=== PATIENT | male | born 1960 | race Caucasian/White ===

== ENCOUNTER 2017-12-13 21:38 | Inpatient (IN) | payer MEDICARE, MEDICAID ==
[2017-12-13] MEDS ORDERED: Sodium Chloride 0.9% 1,000 ML IV ONE (21:53)
--- NOTE | 2017-12-13 22:01 | ED Physician Chart ---
ED Chief Complaint/HPI - Patient Information Date Seen:: 12/13/17 Time Seen:: 21:57 Chief Complaint:: generalized weakness History of Present Illness:: 57 [facility] old male from [facility] here for generalized weakness pt alert awake verbalizing Allergies:: Allergies Allergy/AdvReac Type Severity Reaction Status Date / Time almond oil Allergy Verified 12/13/17 21:45 Vitals:: Vital Signs - 8 hr 12/13/17 21:40 Temp 97.9 F HR 58 RR 18 BP 112/71 O2 Sat % 98 ED Review of Systems - Review of Systems General/Constitutional: No fever, No chills, No weight loss, No weakness, No diaphoresis, No edema, No loss of appetite Skin: No skin lesions, No rash, No bruising Head: No headache, No light-headedness Eyes: No loss of vision, No pain, No diplopia ENT: No earache, No nasal drainage, No sore throat, No tinnitus Neck: No neck pain, No swelling, No thyromegaly, No stiffness, No mass noted Cardio Vascular: No chest pain, No palpitations, No PND, No orthopnea, No edema Pulmonary: No SOB, No cough, No sputum, No wheezing GI: No nausea, No vomiting, No diarrhea, No pain, No melena, No hematochezia, No constipation, No hematemesis G/U: No dysuria, No frequency, No hematuria Musculoskeletal: No bone or joint pain, No back pain, No muscle pain Endocrine: No polyuria, No polydipsia Psychiatric: No prior psych history, No depression, No anxiety, No suicidal ideation Hematopoietic: No bruising, No lymphadenopathy Allergic/Immuno: No urticaria, No angioedema Neurological: No syncope, No focal symptoms, No weakness, No paresthesia, No headache, No seizure, No dizziness, No confusion, No vertigo ED Past Medical History - Past Medical History Past Medical History: HTN, Arthritis, Other (anxiety paranoid schizophrenia) Family Medical History - Family Member Mother History Unknown: Yes ED Physical Exam - Physical Examination General/Constitutional: Awake, Well-developed, well-nourished, Alert, No distress, GCS 15, Non-toxic appearing, Ambulatory Head: Atraumatic Eyes: Lids, conjuctiva normal, PERRL, EOMI Skin: Nl inspection, No rash, No skin lesions, No ecchymosis, Well hydrated, No lymphadenopathy ENMT: External ears, nose nl, Nasal exam nl, Lips, teeth, gums nl Neck: Nontender, Full ROM w/o pain, No JVD, No nuchal rigidity, No bruit, No mass, No stridor Respiratory: Nl effort/Exclusion, Clear to Auscultation, No Wheeze/Rhonchi/Rales Cardio Vascular: RRR, No murmur, gallop, rubs, NL S1 S2 GI: No tenderness/rebounding/guarding, No organomegaly, No hernia, Normal BS's, Nondistended, No mass/bruits, No McBurney tenderness : No CVA tenderness Extremities: No tenderness or effusion, Full ROM, normal strength in all extremities, No edema, Normal digits & nails Neuro/Psych: Alert/oriented, DTR's symmetric, Normal sensory exam, Normal motor strength, Judgement/insight normal, Mood normal, Normal gait, No focal deficits Misc: Normal back, No paraspinal tenderness ED Assessment - Assessment General Assessment: generalized weakness ED Septic Shock - . Is Septic Shock (SBP<90, OR Lactate>4 mmol\L) present?: No - <6hrs of presentation: Vital Signs: Vital Signs - 8 hr 12/13/17 21:40 Temp 97.9 F HR 58 RR 18 BP 112/71 O2 Sat % 98 ED Reassessment (Disposition) - Reassessment Reassessment Condition:: Improved - Diagnosis Diagnosis:: generalized weakness - Patient Disposition Discharge/Transfer:: Acute Care w/in this hosp Admitted to:: Med/Surg Condition at Disposition:: Stable
[2017-12-13 22:16] LABS: % BASOPHILS 0.5 % (0.0-2.0); % EOSINOPHILS 3.7 % (0.0-5.0); % LYMPHOCYTES 25.5 % (20.0-50.0); % MONOCYTES 9.3 % (2.0-10.0); EOSINOPHILE ABSOLUTE 0.4 Th/cmm (0.1-0.4); HEMOGLOBIN 12.4 gm/dL (12-16); LYMPHOCYTE ABSOLUTE 2.5 Th/cmm (1.5-3.0); MEAN CELL VOLUME 85.5 fl (80-99); MEAN CORPUSCULAR HEMOGLOBIN 28.6 pg (26.0-30.0); MEAN CORPUSCULAR HGB CONC 33.4 pg (28.0-36.0); MEAN PLATELET VOLUME 7.4 fl; MONOCYTE ABSOLUTE 0.9 Th/cmm (0.3-1.0); NEUTROPHILE ABSOLUTE 6.1 Th/cmm (1.8-8.0); PLATELET COUNT 236 Th/cmm (150-400); RED BLOOD COUNT 4.33 Mil/cmm (4.30-5.70); RED CELL DISTRIBUTION WIDTH 14.5 % (11.5-20.0); WHITE BLOOD COUNT 9.9 Th/cmm (4.8-10.8)
[2017-12-13 22:35] LABS: ALB/GLOB RATIO 1.4 (1.0-1.8); ALKALINE PHOSPHATASE 79 U/L (34-104); ANION GAP 12.3 (7.0-16.0); BILIRUBIN,TOTAL 0.4 mg/dL (0.3-1.0); BUN - UREA NITROGEN 21 mg/dL (7-25); CALCIUM SERUM 9.5 mg/dL (8.6-10.3); CARBON DIOXIDE 25.6 mEq/L (21.0-31.0); CHLORIDE 106 mEq/L (98-107); CREATININE - SERUM 1.4 mg/dL (0.7-1.3); GFR AFRICAN-AMERICAN > 60.0 ml/min (>90); GFR NON AFRICAN-AMERICAN 55.5 ml/min; GLUCOSE 137 mg/dL (70-105); POTASSIUM SERUM 3.9 mEq/L (3.5-5.1); SGOT 15 U/L (13-39); SGPT/ALT 28 U/L (7-52); SODIUM SERUM 140 mEq/L (136-145); TOTAL PROTEIN,SERUM 6.9 gm/dL (6.0-8.3)
[2017-12-13 23:20] LABS: URINE SOURCE CLEAN C
[2017-12-13 23:33] LABS: URINE BILIRUBIN NEGATIVE (NEGATIVE); URINE BLOOD NEGATIVE (NEGATIVE); URINE CLARITY CLEAR (CLEAR); URINE COLOR YELLOW; URINE GLUCOSE (UA) NEGATIVE (NEGATIVE); URINE KETONE NEGATIVE (NEGATIVE); URINE LEUKOCYTE ESTERASE TRACE (NEGATIVE); URINE MICROSCOPIC INDICATED? YES; URINE NITRATE NEGATIVE (NEGATIVE); URINE PROTEIN NEGATIVE (NEGATIVE); URINE UROBILINOGEN 0.2 E.U./dL (0.2 - 1.0)
[2017-12-13 23:40] LABS: URINE BACTERIA OCCASIONAL /hpf (NONE SEEN); URINE EPITHELIAL CELLS OCCASIONAL /lpf (FEW); URINE RBC NONE SEEN /hpf (0-5); URINE WBC 0-2 /hpf (0-5)
[2017-12-14 04:41] LABS: % BASOPHILS 0.4 % (0.0-2.0); % EOSINOPHILS 1.4 % (0.0-5.0); % LYMPHOCYTES 16.2 % (20.0-50.0); % MONOCYTES 10.1 % (2.0-10.0); % NEUTROPHILS 71.9 % (40.0-80.0); BASOPHILE ABSOLUTE 0.1 Th/cumm (0-0.2); EOSINOPHILE ABSOLUTE 0.2 Th/cmm (0.1-0.4); HEMATOCRIT 36.6 % (41.0-60); HEMOGLOBIN 12.4 gm/dL (12-16); LYMPHOCYTE ABSOLUTE 2.2 Th/cmm (1.5-3.0); MEAN CELL VOLUME 86.3 fl (80-99); MEAN CORPUSCULAR HEMOGLOBIN 29.1 pg (26.0-30.0); MEAN CORPUSCULAR HGB CONC 33.8 pg (28.0-36.0); MEAN PLATELET VOLUME 8.2 fl; MONOCYTE ABSOLUTE 1.4 Th/cmm (0.3-1.0); NEUTROPHILE ABSOLUTE 9.9 Th/cmm (1.8-8.0); PLATELET COUNT 211 Th/cmm (150-400); RED BLOOD COUNT 4.24 Mil/cmm (4.30-5.70); RED CELL DISTRIBUTION WIDTH 14.5 % (11.5-20.0); WHITE BLOOD COUNT 13.8 Th/cmm (4.8-10.8)
[2017-12-14] MEDS: Sodium Chloride 0.9% 1,000 ML IV SCH ×2 (04:50→14:28)
[2017-12-14 05:19] VITALS: BP 131/62
[2017-12-14 05:20] LABS: BUN - UREA NITROGEN 22 mg/dL (7-25); CALCIUM SERUM 9.3 mg/dL (8.6-10.3); CHLORIDE 111 mEq/L (98-107); CREATININE - SERUM 1.3 mg/dL (0.7-1.3); GFR AFRICAN-AMERICAN > 60.0 ml/min (>90); GFR NON AFRICAN-AMERICAN > 60.0 ml/min; GLUCOSE 129 mg/dL (70-105); SODIUM SERUM 144 mEq/L (136-145)
[2017-12-14] MEDS ORDERED: Albuterol Nebulizer 2.5mg/3mL HHN PRN (09:09)
[2017-12-14] MEDS: cefTRIAXone 1 GM in Sodium Chloride 0.9% 50 ML IV SCH (13:24)
--- NOTE | 2017-12-14 15:30 | Consultation ---
Consult Note - Consult Note Service Date: 12/14/17 Referring Physician: Carol Ann Joyner Consult Note: PHYSICIAN Consultation Note: Date of Admission: 12/13/17 Purpose of Consultation: Chief Complaint: Patient CHAYITO MCINTOSH was admitted to location Medical/Surgical Unit I with DEHYDRATION. History of Present Illness: 57-year-old male with a past medical history of osteo-arthritis, hypertension, GERD, mood disorder, Schizophrenia, anxiety disorder, gait disturbance, muscle lasting. Sent to the ER for generalized weakness. On initial evaluation patient's temperature 97.9 F and WBC count was 9900. Patient WBC count went up to 20,000 today. Rocephin was started and ID consult was called for further antibiotic management. Patient complains of cough. Patient denies any shortness of breath. Past Medical History: Osteoarthritis, essential hypertension, GERD, mood disorder, schizophrenia, anxiety disorder, gait disturbance, muscle lasting. Allergies Allergy/AdvReac Type Severity Reaction Status Date / Time almond oil Allergy Verified 12/13/17 21:45 Vital Signs Temp 97.6 F 12/14/17 11:42 Pulse 55 12/14/17 11:42 Resp 17 12/14/17 11:42 BP 113/83 12/14/17 11:42 Pulse Ox 98 12/14/17 11:42 Intake & Output 12/13/17 12/14/17 12/14/17 18:59 06:59 18:59 Intake Total 1050 Balance 1050 Weight (lbs) 59.421 kg 59.421 kg Intake: Intake, IV Amount 1000 Sodium Chloride 0.9% 1, 1000 000 ml @ 125 mls/hr IV . Q8H [facility] Rx#:[id number] Oral 50 Other: # Voids 1 # Bowel Movements 0 Stool Characteristics Soft Weight Source Estimated Bedscale Laboratory Results - last 24 hr 12/13/17 12/13/17 12/13/17 22:05 22:05 22:05 WBC 9.9 RBC 4.33 Hgb 12.4 Hct 37.0 L MCV 85.5 MCH 28.6 MCHC Differential 33.4 RDW 14.5 Plt Count 236 MPV 7.4 Neutrophils % 61.0 Lymphocytes % 25.5 Monocytes % 9.3 Eosinophils % 3.7 Basophils % 0.5 Sodium 140 Potassium 3.9 Chloride 106 Carbon Dioxide 25.6 Anion Gap 12.3 BUN 21 Creatinine 1.4 H Est GFR ( Amer) > 60.0 Est GFR (Non-Af Amer) 55.5 BUN/Creatinine Ratio 15.0 Glucose 137 H Calcium 9.5 Total Bilirubin 0.4 AST 15 ALT 28 Alkaline Phosphatase 79 Total Protein 6.9 Albumin 4.0 L Globulin 2.9 Albumin/Globulin Ratio 1.4 Urine Source Urine Color Urine Clarity Urine pH Ur Specific [place] Urine Protein Urine Glucose (UA) Urine Ketones Urine Blood Urine Nitrate Urine Bilirubin Urine Urobilinogen Ur Leukocyte Esterase Urine RBC Urine WBC Ur Epithelial Cells Urine Bacteria [place] 0.79 12/13/17 12/14/17 12/14/17 23:08 04:30 04:30 WBC 13.8 H RBC 4.24 L Hgb 12.4 Hct 36.6 L MCV 86.3 MCH 29.1 MCHC Differential 33.8 RDW 14.5 Plt Count 211 MPV 8.2 Neutrophils % 71.9 Lymphocytes % 16.2 L Monocytes % 10.1 H Eosinophils % 1.4 Basophils % 0.4 Sodium 144 Potassium 4.0 Chloride 111 H Carbon Dioxide 26.0 Anion Gap 11.0 BUN 22 Creatinine 1.3 Est GFR ( Amer) > 60.0 Est GFR (Non-Af Amer) > 60.0 BUN/Creatinine Ratio 16.9 Glucose 129 H Calcium 9.3 Total Bilirubin AST ALT Alkaline Phosphatase Total Protein Albumin Globulin Albumin/Globulin Ratio Urine Source CLEAN C Urine Color YELLOW Urine Clarity CLEAR Urine pH 6.0 Ur Specific [place] <= 1.005 Urine Protein NEGATIVE Urine Glucose (UA) NEGATIVE Urine Ketones NEGATIVE Urine Blood NEGATIVE Urine Nitrate NEGATIVE Urine Bilirubin NEGATIVE Urine Urobilinogen 0.2 Ur Leukocyte Esterase TRACE H Urine RBC NONE SEEN Urine WBC 0-2 Ur Epithelial Cells OCCASIONAL Urine Bacteria OCCASIONAL [place] Home Medication Medication Instructions Recorded Type Acetaminophen [Tylenol] 650 mg PO Q4HR PRN 12/13/17 History Albuterol Sulfate [Proair 90 mcg IH Q6HR PRN 12/13/17 History Respiclick] Amlodipine Besylate 5 mg PO DAILY 12/13/17 History Clozapine 50 mg PO BID 12/13/17 History Clozapine 125 mg PO HS 12/13/17 History Docusate Sodium [Stool Softener] 250 mg PO DAILY 12/13/17 History Fish Oil [[place] 3] 1,000 mg PO DAILY 12/13/17 History Lactulose 30 ml PO BID 12/13/17 History [place] Carbonate 600 mg PO HS 12/13/17 History Lorazepam [Ativan] 0.5 mg PO HS 12/13/17 History Methimazole 20 mg PO DAILY 12/13/17 History Pantoprazole [Protonix] 40 mg PO DAILY 12/13/17 History Zolpidem Tartrate [Ambien] 5 mg PO HS 12/13/17 History cloNIDine HCl [Catapres] 0.1 mg PO DAILY 12/13/17 History Current Medications Generic Name Dose Route Start Last Admin Trade Name Freq PRN Reason Stop Dose Admin Acetaminophen 650 mg 12/14/17 09:09 Tylenol PO 02/12/18 09:08 Q4HR PRN Pain or Fever >101 Albuterol Sulfate 2.5 mg 12/14/17 09:09 Albuterol 2.5mg/3ml Neb Ud HHN Q6HR PRN Shortness of Breath Amlodipine Besylate 5 mg 12/15/17 09:00 Norvasc PO 02/13/18 08:59 DAILY [facility] Clozapine 50 mg 12/14/17 17:00 Clozaril PO 02/12/18 16:59 BID [facility] Docusate Sodium 250 mg 12/15/17 09:00 Colace PO 02/13/18 08:59 DAILY [facility] Fish Oil 1,000 mg 12/15/17 09:00 [place] 3 PO 02/13/18 08:59 DAILY [facility] Sodium Chloride 1,000 mls @ 125 mls/hr 12/13/17 23:49 12/14/17 14:28 Nacl 0.9% IV 02/11/18 23:48 125 mls/hr .Q8H [facility] Administration Ceftriaxone Sodium 1 gm/ 50 mls @ 100 mls/hr 12/14/17 11:00 12/14/17 13:24 Sodium Chloride IV 02/12/18 10:59 100 mls/hr Q24HR@0900 [facility] Administration Lactulose 30 gm 12/14/17 17:00 Cephulac PO 02/12/18 16:59 BID [facility] [place] Carbonate 600 mg 12/14/17 21:00 Eskalith PO 02/12/18 20:59 HS [facility] Lorazepam 0.5 mg 12/14/17 21:00 Ativan PO 02/12/18 20:59 HS [facility] Protocol Methimazole 20 mg 12/15/17 09:00 Tapazole PO 02/13/18 08:59 DAILY [facility] Pantoprazole Sodium 40 mg 12/15/17 09:00 Protonix PO 02/13/18 08:59 DAILY [facility] Zolpidem Tartrate 5 mg 12/14/17 21:00 Ambien PO 02/12/18 20:59 HS [facility] Review of Systems: A 12 point ROS was reviewed with the pertinent positive and negatives noted in the HPI. Social History Smoking Status Unknown if ever smoked Family Medical History Unknown. Physical Exam: General: Comfortable, not in acute distress. HEENT: Head: Normocephalic, atraumatic. Oral cavity: Moist, pink tongue. Eyes : Pallor is present. No icterus. Pupil PERRLA EOMI. Neck: Supple, no JVD. No use of accessory neck muscles. Cardio: S1 and S2 within normal limits regular rhythm no murmur or gallop. Respiratory: CTAP. Abdominal: Soft, nontender nondistended bowel sounds present Genital/Urinary: Deferred. Extremities: No sinus, no clubbing no edema. Patient has dry erythematous lesion with a skills on both feet. Neurological: Alert, awake, oriented 3. Assessment: 1. Cough, bronchitis. 2. Leukocytosis likely reactive. 3. Schizophrenia. 4. Hypertension. 5. Mood disorder. 6. Osteoarthritis. Plan: Continue Rocephin. If the patient's WBC Count comes normal, discontinue antibiotic. Dr. Ar Laboy for involving me in taking care of this patient Signed, Charles Colin M.D. [id number]
--- NOTE | 2017-12-14 17:10 | History & Physical ---
ADMIT DATE: 12/14/2017 CHIEF COMPLAINT: Increase in generalized weakness. HISTORY OF PRESENT ILLNESS: This is a 57-year-old male who is a resident of [facility] admitted here to the med-surg Unit due to increase of weakness. No reports of any [facility] the [facility]. For further management, the patient is now admitted. PAST MEDICAL HISTORY: Hypertension, arthritis, anxiety, paranoid schizophrenia. FAMILY HISTORY: Noncontributory. SOCIAL HISTORY: The patient is a [facility] resident, requiring 24-hour nursing care. PAST SURGICAL HISTORY: Unknown. REVIEW OF SYSTEMS: GENERAL: Denies any fever and chills. CARDIOVASCULAR: Denies chest pain. RESPIRATORY: Denies shortness of breath. GASTROINTESTINAL: Denies nausea, vomiting, abdominal pain. GENITOURINARY: Denies increased frequency or dysuria. NEUROLOGIC: No headaches, seizures, or syncope. All systems are reviewed and negative. PHYSICAL EXAMINATION: GENERAL: The patient is well developed, well nourished, in no apparent distress. VITAL SIGNS: Temperature 97.6, height 5 feet 5 inches, blood pressure 113/83, respirations 17, O2 98%. HEENT: Head: Normocephalic, atraumatic. NECK: Supple. No mass. LUNGS: Clear bilaterally. HEAT: Regular rate and rhythm. ABDOMEN: Soft, nontender. EXTREMITIES: No trace of edema noted. LABORATORY DATA: WBC 13.8, H and H 12.4 and 36.6, platelet of 211. Sodium 144, potassium 4.0, chloride 111, BUN 22, creatinine 1.3. ASSESSMENT: Acute dehydration, leukocytosis, generalized weakness, hypertension, arthritis, anxiety, paranoid, schizophrenia. PLAN: We will admit the patient to Med/Surg unit. We will get IV fluids for hydration. We will also get Infectious Disease as well as Psychiatry. Keep patient on empiric antibiotics. We will continue to monitor this patient. [facility]# [id number]
[2017-12-14] MEDS: Lactulose 10 Gm/15 mL 30mL UDC PO SCH (17:52)
--- NOTE | 2017-12-14 21:27 | Consultation ---
DATE OF CONSULTATION: 12/14/2017 IDENTIFYING INFORMATION: The patient is a 57-year-old male. HISTORY OF PRESENT ILLNESS: The patient has a history of chronic paranoid schizophrenia. The patient was admitted because of generalized weakness. When I talked to him, he was able to give some information. He reports a history of being paranoid, hearing voices. He sleeps well, eats well. He denies any current intent to harm himself or anybody. Denies any other visual hallucinations now. He knows that he is diagnosed with chronic paranoid schizophrenia. He denies any current substance abuse or in the past. PAST PSYCHIATRIC HISTORY: Chronic paranoid schizophrenia. He denies prior suicide attempt. He reports multiple hospitalizations. He currently lives at [place] [facility]. MEDICAL HISTORY: The patient admitted with generalized weakness. He has a history of hypertension, arthritis. ALLERGIES: HE IS ALLERGIC TO ALMOND OIL, BUT NO KNOWN DRUG ALLERGY. MEDICATIONS: He is currently on clozapine 50 mg twice a day and lithium 600 mg at bedtime. FAMILY AND SOCIAL HISTORY: The patient reports that he is single, never , no children, 12th grade education, never worked, on disability for mental illness. No family psychotic disorder. MENTAL STATUS EXAMINATION: The patient is appropriately dressed, appropriately groomed. Mood is depressed. Affect is constricted. Thoughts are clear. Speech is clear. He is alert and oriented to place, person, time, and situation. He reports feeling okay now, stable. No suicidal ideation. No homicidal ideation. No paranoia. Sleeping well, eating well. 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 Recent memory is good, can remember events led to him coming here, what he ate for breakfast. His insight and judgment seems to be fair. He knows he has a problem to be compliant with medications. IMPRESSION: Chronic paranoid schizophrenia, stable. MEDICAL DIAGNOSES: Per medical doctor. PLAN: Recommend continue his clozapine and lithium. Dr. Caro will follow up with him. Thank you very much for allowing me to participate in the care of this most interesting gentleman. JOB# [id number]
[2017-12-15] MEDS: Sodium Chloride 0.9% 1,000 ML IV SCH ×3 (00:42→23:52)
[2017-12-15 06:15] LABS: % BASOPHILS 0.2 % (0.0-2.0); % EOSINOPHILS 5.4 % (0.0-5.0); % LYMPHOCYTES 27.9 % (20.0-50.0); % MONOCYTES 9.5 % (2.0-10.0); EOSINOPHILE ABSOLUTE 0.7 Th/cmm (0.1-0.4); HEMATOCRIT 39.2 % (41.0-60); LYMPHOCYTE ABSOLUTE 3.4 Th/cmm (1.5-3.0); MEAN CELL VOLUME 86.4 fl (80-99); MEAN CORPUSCULAR HEMOGLOBIN 28.7 pg (26.0-30.0); MEAN CORPUSCULAR HGB CONC 33.3 pg (28.0-36.0); MEAN PLATELET VOLUME 7.8 fl; MONOCYTE ABSOLUTE 1.2 Th/cmm (0.3-1.0); NEUTROPHILE ABSOLUTE 6.9 Th/cmm (1.8-8.0); PLATELET COUNT 226 Th/cmm (150-400); RED BLOOD COUNT 4.54 Mil/cmm (4.30-5.70); WHITE BLOOD COUNT 12.2 Th/cmm (4.8-10.8)
[2017-12-15 06:34] LABS: ANION GAP 12.3 (7.0-16.0); BUN - UREA NITROGEN 18 mg/dL (7-25); CALCIUM SERUM 9.6 mg/dL (8.6-10.3); CARBON DIOXIDE 24.4 mEq/L (21.0-31.0); CHLORIDE 112 mEq/L (98-107); CREATININE - SERUM 1.2 mg/dL (0.7-1.3); GFR AFRICAN-AMERICAN > 60.0 ml/min (>90); GFR NON AFRICAN-AMERICAN > 60.0 ml/min; GLUCOSE 109 mg/dL (70-105); POTASSIUM SERUM 4.7 mEq/L (3.5-5.1); SODIUM SERUM 144 mEq/L (136-145)
[2017-12-15] MEDS: Fish Oil 1,000 MG SGL PO SCH (08:54)
[2017-12-15] MEDS: Pantoprazole 40 mg EC Tab PO SCH (08:54)
[2017-12-15] MEDS: Lactulose 10 Gm/15 mL 30mL UDC PO SCH ×2 (08:59→16:30)
[2017-12-15] MEDS: cefTRIAXone 1 GM in Sodium Chloride 0.9% 50 ML IV SCH (09:00)
--- NOTE | 2017-12-15 10:39 | Internal Medicine Prog Note ---
Internal Medicine Subjective - Subjective Patient seen and examined:: chart reviewed Patient is:: awake Patient Complaints of:: cough Per staff patient has:: tolerating meds Internal Medicine Objective - Results Result Diagrams: 12/15/17 05:20 12/15/17 05:20 Recent Labs: Laboratory Last Values WBC 12.2 Th/cmm (4.8-10.8) H 12/15/17 05:20 RBC 4.54 Mil/cmm (4.30-5.70) 12/15/17 05:20 Hgb 13.0 gm/dL (12-16) 12/15/17 05:20 Hct 39.2 % (41.0-60) L 12/15/17 05:20 MCV 86.4 fl (80-99) 12/15/17 05:20 MCH 28.7 pg (26.0-30.0) 12/15/17 05:20 MCHC Differential 33.3 pg (28.0-36.0) 12/15/17 05:20 RDW 15.0 % (11.5-20.0) 12/15/17 05:20 Plt Count 226 Th/cmm (150-400) 12/15/17 05:20 MPV 7.8 fl 12/15/17 05:20 Neutrophils % 57.0 % (40.0-80.0) 12/15/17 05:20 Lymphocytes % 27.9 % (20.0-50.0) 12/15/17 05:20 Monocytes % 9.5 % (2.0-10.0) 12/15/17 05:20 Eosinophils % 5.4 % (0.0-5.0) H 12/15/17 05:20 Basophils % 0.2 % (0.0-2.0) 12/15/17 05:20 Sodium 144 mEq/L (136-145) 12/15/17 05:20 Potassium 4.7 mEq/L (3.5-5.1) 12/15/17 05:20 Chloride 112 mEq/L (98-107) H 12/15/17 05:20 Carbon Dioxide 24.4 mEq/L (21.0-31.0) 12/15/17 05:20 Anion Gap 12.3 (7.0-16.0) 12/15/17 05:20 BUN 18 mg/dL (7-25) 12/15/17 05:20 Creatinine 1.2 mg/dL (0.7-1.3) 12/15/17 05:20 Est GFR ( Amer) > 60.0 ml/min (>90) 12/15/17 05:20 Est GFR (Non-Af Amer) > 60.0 ml/min 12/15/17 05:20 BUN/Creatinine Ratio 15.0 12/15/17 05:20 Glucose 109 mg/dL (70-105) H 12/15/17 05:20 Calcium 9.6 mg/dL (8.6-10.3) 12/15/17 05:20 Total Bilirubin 0.4 mg/dL (0.3-1.0) 12/13/17 22:05 AST 15 U/L (13-39) 12/13/17 22:05 ALT 28 U/L (7-52) 12/13/17 22:05 Alkaline Phosphatase 79 U/L (34-104) 12/13/17 22:05 Total Protein 6.9 gm/dL (6.0-8.3) 12/13/17 22:05 Albumin 4.0 gm/dL (4.2-5.5) L 12/13/17 22:05 Globulin 2.9 gm/dL 12/13/17 22:05 Albumin/Globulin Ratio 1.4 (1.0-1.8) 12/13/17 22:05 Urine Source CLEAN C 12/13/17 23:08 Urine Color YELLOW 12/13/17 23:08 Urine Clarity CLEAR (CLEAR) 12/13/17 23:08 Urine pH 6.0 (4.6 - 8.0) 12/13/17 23:08 Ur Specific [place] <= 1.005 (1.005-1.030) 12/13/17 23:08 Urine Protein NEGATIVE mg/dL (NEGATIVE) 12/13/17 23:08 Urine Glucose (UA) NEGATIVE mg/dL (NEGATIVE) 12/13/17 23:08 Urine Ketones NEGATIVE mg/dL (NEGATIVE) 12/13/17 23:08 Urine Blood NEGATIVE (NEGATIVE) 12/13/17 23:08 Urine Nitrate NEGATIVE (NEGATIVE) 12/13/17 23:08 Urine Bilirubin NEGATIVE (NEGATIVE) 12/13/17 23:08 Urine Urobilinogen 0.2 E.U./dL (0.2 - 1.0) 12/13/17 23:08 Ur Leukocyte Esterase TRACE (NEGATIVE) H 12/13/17 23:08 Urine RBC NONE SEEN /hpf (0-5) 12/13/17 23:08 Urine WBC 0-2 /hpf (0-5) 12/13/17 23:08 Ur Epithelial Cells OCCASIONAL /lpf (FEW) 12/13/17 23:08 Urine Bacteria OCCASIONAL /hpf (NONE SEEN) 12/13/17 23:08 [place] 0.79 mmol/L (0.5-1.0) 12/13/17 22:05 - Physical Exam Vitals and I&O: Vital Signs Temp 98.1 F 12/15/17 08:00 Pulse 50 12/15/17 08:55 Resp 18 12/15/17 08:00 BP 136/64 12/15/17 08:55 Pulse Ox 95 12/15/17 08:00 Intake & Output 12/14/17 12/15/17 12/15/17 18:59 06:59 18:59 Intake Total 1100 1050 Balance 1100 1050 Weight (lbs) 59.421 kg 59.421 kg Intake: Intake, IV Amount 1050 1000 Sodium Chloride 0.9% 1, 1000 1000 000 ml @ 125 mls/hr IV . Q8H [facility] Rx#:[id number] cefTRIAXone 1 gm In 50 Sodium Chloride 0.9% 50 ml @ 100 mls/hr IV Q24HR@ 0900 [facility] Rx#:[id number] Oral 50 50 Other: # Voids 1 4 # Bowel Movements 0 0 Weight Source Bedscale Bedscale Active Medications: Current Medications Acetaminophen (Tylenol) 650 mg PO Q4HR PRN PRN Reason: Pain or Fever >101 Stop: 02/12/18 09:08 Albuterol Sulfate (Albuterol 2.5mg/3ml Neb Ud) 2.5 mg HHN Q6HR PRN PRN Reason: Shortness of Breath Amlodipine Besylate (Norvasc) 5 mg PO DAILY [facility] Stop: 02/13/18 08:59 Last Admin: 12/15/17 08:55 Dose: 5 mg Clozapine (Clozaril) 50 mg PO BID [facility] Stop: 02/12/18 16:59 Docusate Sodium (Colace) 250 mg PO DAILY [facility] Stop: 02/13/18 08:59 Last Admin: 12/15/17 08:55 Dose: 250 mg Fish Oil ([place] 3) 1,000 mg PO DAILY [facility] Stop: 02/13/18 08:59 Last Admin: 12/15/17 08:54 Dose: 1,000 mg Sodium Chloride (Nacl 0.9%) 1,000 mls @ 125 mls/hr IV .Q8H [facility] Stop: 02/11/18 23:48 Last Admin: 12/15/17 00:42 Dose: 125 mls/hr Ceftriaxone Sodium 1 gm/ (Sodium Chloride) 50 mls @ 100 mls/hr IV Q24HR@0900 [facility] Stop: 02/12/18 10:59 Last Admin: 12/15/17 09:00 Dose: 100 mls/hr Lactulose (Cephulac) 30 gm PO BID [facility] Stop: 02/12/18 16:59 Last Admin: 12/15/17 08:59 Dose: 30 gm [place] Carbonate (Eskalith) 600 mg PO HS [facility]; Protocol Stop: 02/12/18 20:59 Last Admin: 12/14/17 22:30 Dose: 600 mg Lorazepam (Ativan) 0.5 mg PO HS [facility]; Protocol Stop: 02/12/18 20:59 Methimazole (Tapazole) 20 mg PO DAILY [facility] Stop: 02/13/18 08:59 Last Admin: 12/15/17 08:59 Dose: 20 mg Pantoprazole Sodium (Protonix) 40 mg PO DAILY [facility] Stop: 02/13/18 08:59 Last Admin: 12/15/17 08:54 Dose: 40 mg Zolpidem Tartrate (Ambien) 5 mg PO HS [facility] Stop: 02/12/18 20:59 Last Admin: 12/14/17 22:30 Dose: 5 mg General: weak HEENT: NC/AT Neck: Supple Lungs: congested Cardiovascular: Normal S1, Normal S2 Abdomen: non-tender Extremities: clear Internal Medicine Assmt/Plan - Assessment Assessment: bronchitis. Leukocytosis h/o Schizophrenia. h/o Hypertension. Mood disorder. h/o Osteoarthritis. - Plan Plan: continue antibiotics monitor vitals/dier labs dr bethany houser f/up Nutritional Asmnt/Malnutr-PDOC - Dietary Evaluation Malnutrition Findings (Please click <Entered> for more info): Nutritional Asmnt/Malnutrition Start: 12/14/17 14: 35 Text: Status: Complete Freq: Protocol: Document 12/14/17 14:35 NADIA (Rec: 12/14/17 14:56 NADIA [email or web address]) Nutritional Asmnt/Malnutrition Patient General Information Nutritional Screening High Risk Diagnosis dehydration Pertinent Medical Hx/Surgical Hx Per ED report: HTN, arthritis, anxiety paranoid schizophrenia No H&P available yet Subjective Information Pt resting in bed at time of visit, alert and oriented. Pt states his appetite is good and states he ate well at breakfast. Pt states he has no food preferences. Current Diet Order/ Nutrition Support Low sodium (2 gm) Pertinent Medications colace, omega 3, protonix, tapazole, Nacl 0.9% Pertinent Labs 12/14: Cl 111, glucose 129, Cr 1.3 12/13: Cl 106, glucose 137, Cr 1.4, Alb 4.0 Nutritional Hx/Data Height 1.91 m Height (Calculated Centimeters) 190.5 Current Weight (lbs) 59.421 kg Weight (Calculated Kilograms) 59.4 Weight (Calculated Grams) 48234.6 [place] Body Weight 196 lb Body Mass Index (BMI) 16.3 Weight Status Underweight GI Symptoms GI Symptoms None Last BM none Difficult in: None Food Allergies Yes: almond oil Skin Integrity/Comment: abrasions to both knees, skin irritation to both feet, yojana 17 Estimated Nutritional Goals BEE in Kcals: Using Current wt Calories/Kcals/Kg 27-32 Kcals Calculated [id number] Protein: Using Current wt Protein g/k-1.2 Protein Calculated 60-71 g Fluid: ml [id number] (1 ml/kcal) Nutritional Problem 1. Problem Problem Underweight Etiology possible inadequate energy intake Signs/Symptoms: BMI 16.4 Malnutrition Related to Morbid Obesity Malnutrition related to morbid obesity No Intervention/Recommendation Comments 1. Continue with low sodium 2 gm diet as ordered d/t hx of HTN 2. Monitor PO intake, wt, labs and skin integrity 3. F/U as moderate risk in 3-5 days, 12/17-12/19; PO check 12/16 Expected Outcomes/Goals Expected Outcomes/Goals 1. PO intake to meet at least 75% of nutritional needs 2. Wt gain or stability, skin to remain intact, and nutrition related labs to approach normal limits Reviewed by AMEENA Workamn RD
--- NOTE | 2017-12-15 18:14 | History & Physical ---
ADMIT DATE: 12/14/2017 HISTORY OF PRESENT ILLNESS: The patient is a 57-year-old female patient admitted for increasing weakness and the patient is awake, alert, verbalizing while transfer. REVIEW OF SYSTEMS: Otherwise, negative. PAST MEDICAL HISTORY: The patient has history of hypertension and arthritis. PHYSICAL EXAMINATION: HEAD: Normal. ENT: Normal. NECK: Supple, nontender. LUNGS: Clear. CARDIOVASCULAR SYSTEM: S1, S2 heard. ABDOMEN: Soft. Bowel sounds are heard. CENTRAL NERVOUS SYSTEM: Grossly normal. DIAGNOSES: Generalized weakness, electrolyte imbalance, history of hypertension, arthritis, history of anxiety, schizophrenia. PLAN: The patient is being admitted. I will go ahead and order some labs and also we will have Psych consult and I will follow the patient. JOB# [id number]
[2017-12-16 08:50] LABS: % BASOPHILS 0.2 % (0.0-2.0); % EOSINOPHILS 4.1 % (0.0-5.0); % LYMPHOCYTES 20.4 % (20.0-50.0); % MONOCYTES 8.3 % (2.0-10.0); EOSINOPHILE ABSOLUTE 0.5 Th/cmm (0.1-0.4); HEMATOCRIT 40.9 % (41.0-60); HEMOGLOBIN 13.6 gm/dL (12-16); LYMPHOCYTE ABSOLUTE 2.7 Th/cmm (1.5-3.0); MEAN CELL VOLUME 86.6 fl (80-99); MEAN CORPUSCULAR HEMOGLOBIN 28.7 pg (26.0-30.0); MEAN CORPUSCULAR HGB CONC 33.2 pg (28.0-36.0); MEAN PLATELET VOLUME 7.7 fl; MONOCYTE ABSOLUTE 1.1 Th/cmm (0.3-1.0); NEUTROPHILE ABSOLUTE 8.8 Th/cmm (1.8-8.0); PLATELET COUNT 245 Th/cmm (150-400); RED BLOOD COUNT 4.73 Mil/cmm (4.30-5.70); RED CELL DISTRIBUTION WIDTH 14.9 % (11.5-20.0); WHITE BLOOD COUNT 13.1 Th/cmm (4.8-10.8)
[2017-12-16 09:17] LABS: ANION GAP 11.4 (7.0-16.0); BUN - UREA NITROGEN 18 mg/dL (7-25); CALCIUM SERUM 9.8 mg/dL (8.6-10.3); CARBON DIOXIDE 24.7 mEq/L (21.0-31.0); CHLORIDE 109 mEq/L (98-107); CREATININE - SERUM 1.2 mg/dL (0.7-1.3); GFR AFRICAN-AMERICAN > 60.0 ml/min (>90); GFR NON AFRICAN-AMERICAN > 60.0 ml/min; GLUCOSE 122 mg/dL (70-105); POTASSIUM SERUM 4.1 mEq/L (3.5-5.1); SODIUM SERUM 141 mEq/L (136-145)
[2017-12-16] MEDS: Fish Oil 1,000 MG SGL PO SCH (09:18)
[2017-12-16] MEDS: Pantoprazole 40 mg EC Tab PO SCH (09:18)
[2017-12-16] MEDS: Lactulose 10 Gm/15 mL 30mL UDC PO SCH (09:19)
[2017-12-16] MEDS: cefTRIAXone 1 GM in Sodium Chloride 0.9% 50 ML IV SCH (09:51)
--- NOTE | 2017-12-16 13:40 | Progress Notes ---
DATE: 12/16/2017 SUBJECTIVE: Case was discussed with staff of the patient, reviewed records. The patient continues to be internally preoccupied. Continues to have poor insight. Continues to be unable to make safe plan for self-care or have a meaningful conversation. He continues to complain of feeling weak. He tend to he reports today that he has been somewhat paranoid, not sure that this is because of her being on the medical floor. So it seemed like he is medically cleared, so we need to watch him prior to him going back to this treatment facility and I would recommend that he could be transferred back to [facility]. He is on ____, so maybe medication need to be adjusted. Thank you very much for allowing me to participate in the care of this most interesting gentleman. JOB# [id number]
--- NOTE | 2017-12-16 14:34 | Progress Notes ---
DATE: 12/15/2017 The patient ____, sleeping well, eating well. He reports starting to hear voices. He is on clozapine. Denies any intent to harm himself or anyone, but he is starting to destabilize, so I will evaluate him tomorrow. Thank you very much for allowing me to participate in the care of this most interesting gentleman. [facility]# [id number]
--- NOTE | 2017-12-16 15:32 | Infectious Disease Prog Note ---
Infectious Disease Subjective - Review of Systems Service Date: 12/16/17 Subjective: Leukocytosis, [place] level was normal on 12/13/2017. Infectious Disease Objective - Results Result Diagrams: 12/16/17 08:40 12/16/17 08:40 Recent Labs: Laboratory Last Values WBC 13.1 Th/cmm (4.8-10.8) H 12/16/17 08:40 RBC 4.73 Mil/cmm (4.30-5.70) 12/16/17 08:40 Hgb 13.6 gm/dL (12-16) 12/16/17 08:40 Hct 40.9 % (41.0-60) L 12/16/17 08:40 MCV 86.6 fl (80-99) 12/16/17 08:40 MCH 28.7 pg (26.0-30.0) 12/16/17 08:40 MCHC Differential 33.2 pg (28.0-36.0) 12/16/17 08:40 RDW 14.9 % (11.5-20.0) 12/16/17 08:40 Plt Count 245 Th/cmm (150-400) 12/16/17 08:40 MPV 7.7 fl 12/16/17 08:40 Neutrophils % 67.0 % (40.0-80.0) 12/16/17 08:40 Lymphocytes % 20.4 % (20.0-50.0) 12/16/17 08:40 Monocytes % 8.3 % (2.0-10.0) 12/16/17 08:40 Eosinophils % 4.1 % (0.0-5.0) 12/16/17 08:40 Basophils % 0.2 % (0.0-2.0) 12/16/17 08:40 Sodium 141 mEq/L (136-145) 12/16/17 08:40 Potassium 4.1 mEq/L (3.5-5.1) 12/16/17 08:40 Chloride 109 mEq/L (98-107) H 12/16/17 08:40 Carbon Dioxide 24.7 mEq/L (21.0-31.0) 12/16/17 08:40 Anion Gap 11.4 (7.0-16.0) 12/16/17 08:40 BUN 18 mg/dL (7-25) 12/16/17 08:40 Creatinine 1.2 mg/dL (0.7-1.3) 12/16/17 08:40 Est GFR ( Amer) > 60.0 ml/min (>90) 12/16/17 08:40 Est GFR (Non-Af Amer) > 60.0 ml/min 12/16/17 08:40 BUN/Creatinine Ratio 15.0 12/16/17 08:40 Glucose 122 mg/dL (70-105) H 12/16/17 08:40 Calcium 9.8 mg/dL (8.6-10.3) 12/16/17 08:40 Total Bilirubin 0.4 mg/dL (0.3-1.0) 12/13/17 22:05 AST 15 U/L (13-39) 12/13/17 22:05 ALT 28 U/L (7-52) 12/13/17 22:05 Alkaline Phosphatase 79 U/L (34-104) 12/13/17 22:05 Total Protein 6.9 gm/dL (6.0-8.3) 12/13/17 22:05 Albumin 4.0 gm/dL (4.2-5.5) L 12/13/17 22:05 Globulin 2.9 gm/dL 12/13/17 22:05 Albumin/Globulin Ratio 1.4 (1.0-1.8) 12/13/17 22:05 Urine Source CLEAN C 12/13/17 23:08 Urine Color YELLOW 12/13/17 23:08 Urine Clarity CLEAR (CLEAR) 12/13/17 23:08 Urine pH 6.0 (4.6 - 8.0) 12/13/17 23:08 Ur Specific [place] <= 1.005 (1.005-1.030) 12/13/17 23:08 Urine Protein NEGATIVE mg/dL (NEGATIVE) 12/13/17 23:08 Urine Glucose (UA) NEGATIVE mg/dL (NEGATIVE) 12/13/17 23:08 Urine Ketones NEGATIVE mg/dL (NEGATIVE) 12/13/17 23:08 Urine Blood NEGATIVE (NEGATIVE) 12/13/17 23:08 Urine Nitrate NEGATIVE (NEGATIVE) 12/13/17 23:08 Urine Bilirubin NEGATIVE (NEGATIVE) 12/13/17 23:08 Urine Urobilinogen 0.2 E.U./dL (0.2 - 1.0) 12/13/17 23:08 Ur Leukocyte Esterase TRACE (NEGATIVE) H 12/13/17 23:08 Urine RBC NONE SEEN /hpf (0-5) 12/13/17 23:08 Urine WBC 0-2 /hpf (0-5) 12/13/17 23:08 Ur Epithelial Cells OCCASIONAL /lpf (FEW) 12/13/17 23:08 Urine Bacteria OCCASIONAL /hpf (NONE SEEN) 12/13/17 23:08 [place] 0.79 mmol/L (0.5-1.0) 12/13/17 22:05 - Physical Exam Vitals and I&O: Vital Signs Temp 97.8 F 12/16/17 11:42 Pulse 45 12/16/17 11:42 Resp 18 12/16/17 11:42 BP 127/74 12/16/17 11:42 Pulse Ox 99 12/16/17 11:42 Intake & Output 12/15/17 12/16/17 12/16/17 18:59 06:59 18:59 Intake Total 2850 1000 50 Balance 2850 1000 50 Weight (lbs) 59.421 kg Intake: Intake, IV Amount 1050 1000 50 Sodium Chloride 0.9% 1, 1000 1000 000 ml @ 125 mls/hr IV . Q8H [facility] Rx#:[id number] cefTRIAXone 1 gm In 50 50 Sodium Chloride 0.9% 50 ml @ 100 mls/hr IV Q24HR@ 0900 [facility] Rx#:[id number] Oral 1800 Other: # Voids 3 # Bowel Movements 0 Stool Characteristics Soft Formed Weight Source Bedscale Active Medications: Current Medications Acetaminophen (Tylenol) 650 mg PO Q4HR PRN PRN Reason: Pain or Fever >101 Stop: 02/12/18 09:08 Albuterol Sulfate (Albuterol 2.5mg/3ml Neb Ud) 2.5 mg HHN Q6HR PRN PRN Reason: Shortness of Breath Clotrimazole (Lotrimin 1% Cream) 1 appl TP DAILY [facility] Stop: 12/23/17 08:59 Last Admin: 12/16/17 09:41 Dose: 1 appl Clozapine (Clozaril) 50 mg PO BID [facility] Stop: 02/12/18 16:59 Last Admin: 12/16/17 11:02 Dose: 50 mg Docusate Sodium (Colace) 250 mg PO DAILY [facility] Stop: 02/13/18 08:59 Last Admin: 12/16/17 09:18 Dose: 250 mg Fish Oil ([place] 3) 1,000 mg PO DAILY [facility] Stop: 02/13/18 08:59 Last Admin: 12/16/17 09:18 Dose: 1,000 mg Sodium Chloride (Nacl 0.9%) 1,000 mls @ 125 mls/hr IV .Q8H [facility] Stop: 02/11/18 23:48 Last Admin: 12/15/17 23:52 Dose: 125 mls/hr Ceftriaxone Sodium 1 gm/ (Sodium Chloride) 50 mls @ 100 mls/hr IV Q24HR@0900 [facility] Stop: 02/12/18 10:59 Last Infusion: 12/16/17 11:11 Dose: Infused Lactulose (Cephulac) 30 gm PO BID [facility] Stop: 02/12/18 16:59 Last Admin: 12/16/17 09:19 Dose: 30 gm [place] Carbonate (Eskalith) 600 mg PO HS [facility]; Protocol Stop: 02/12/18 20:59 Last Admin: 12/15/17 20:48 Dose: 600 mg Lorazepam (Ativan) 0.5 mg PO HS [facility]; Protocol Stop: 02/12/18 20:59 Methimazole (Tapazole) 20 mg PO DAILY [facility] Stop: 02/13/18 08:59 Last Admin: 12/16/17 09:19 Dose: 20 mg Pantoprazole Sodium (Protonix) 40 mg PO DAILY [facility] Stop: 02/13/18 08:59 Last Admin: 12/16/17 09:18 Dose: 40 mg Zolpidem Tartrate (Ambien) 5 mg PO HS [facility] Stop: 02/12/18 20:59 Last Admin: 12/15/17 20:47 Dose: 5 mg General: no acute distress, well developed, well nourished HEENT: atraumatic, normocephalic, PERRLA, EOMI Neck: supple, no thyromegaly Cardiovascular: S1S2, regular Lungs: clear to auscultation bilaterally, clear to percussion Abdomen: soft, no tender, no distended, no rebound Extremities: no cyanosis, no clubbing, no edema Skin: intact Infectious Disease Assmt/Plan - Assessment Assessment: 1. Leukocytosis, clinical; exam is benign. 2. Cough, bronchitis. 3. Schizophrenia. 4. Hypertension. 5. Mood disorder. 6. Osteoarthritis. - Plan Plan: Dc ceftriaxone, monitor. Check lithium level,, again. Nutritional Asmnt/Malnutr-PDOC - Dietary Evaluation Malnutrition Findings (Please click <Entered> for more info): Nutritional Asmnt/Malnutrition Start: 12/14/17 14: 35 Text: Status: Complete Freq: Protocol: Document 12/14/17 14:35 NADIA (Rec: 12/14/17 14:56 [email or web address]) Nutritional Asmnt/Malnutrition Patient General Information Nutritional Screening High Risk Diagnosis dehydration Pertinent Medical Hx/Surgical Hx Per ED report: HTN, arthritis, anxiety paranoid schizophrenia No H&P available yet Subjective Information Pt resting in bed at time of visit, alert and oriented. Pt states his appetite is good and states he ate well at breakfast. Pt states he has no food preferences. Current Diet Order/ Nutrition Support Low sodium (2 gm) Pertinent Medications colace, omega 3, protonix, tapazole, Nacl 0.9% Pertinent Labs 12/14: Cl 111, glucose 129, Cr 1.3 12/13: Cl 106, glucose 137, Cr 1.4, Alb 4.0 Nutritional Hx/Data Height 1.91 m Height (Calculated Centimeters) 190.5 Current Weight (lbs) 59.421 kg Weight (Calculated Kilograms) 59.4 Weight (Calculated Grams) 67342.6 [place] Body Weight 196 lb Body Mass Index (BMI) 16.3 Weight Status Underweight GI Symptoms GI Symptoms None Last BM none Difficult in: None Food Allergies Yes: almond oil Skin Integrity/Comment: abrasions to both knees, skin irritation to both feet, yojana 17 Estimated Nutritional Goals BEE in Kcals: Using Current wt Calories/Kcals/Kg 27-32 Kcals Calculated 4322-5677 Protein: Using Current wt Protein g/k-1.2 Protein Calculated 60-71 g Fluid: ml 9871-3425 (1 ml/kcal) Nutritional Problem 1. Problem Problem Underweight Etiology possible inadequate energy intake Signs/Symptoms: BMI 16.4 Malnutrition Related to Morbid Obesity Malnutrition related to morbid obesity No Intervention/Recommendation Comments 1. Continue with low sodium 2 gm diet as ordered d/t hx of HTN 2. Monitor PO intake, wt, labs and skin integrity 3. F/U as moderate risk in 3-5 days, 12/17-12/19; PO check 12/16 Expected Outcomes/Goals Expected Outcomes/Goals 1. PO intake to meet at least 75% of nutritional needs 2. Wt gain or stability, skin to remain intact, and nutrition related labs to approach normal limits Reviewed by AMEENA Workman RD
--- NOTE | 2017-12-16 16:23 | Internal Medicine Prog Note ---
Internal Medicine Subjective - Subjective Patient is:: awake, other Patient Complaints of:: cough, other (hearing voices ) Per staff patient has:: tolerating meds Internal Medicine Objective - Results Result Diagrams: 12/16/17 08:40 12/16/17 08:40 Recent Labs: Laboratory Last Values WBC 13.1 Th/cmm (4.8-10.8) H 12/16/17 08:40 RBC 4.73 Mil/cmm (4.30-5.70) 12/16/17 08:40 Hgb 13.6 gm/dL (12-16) 12/16/17 08:40 Hct 40.9 % (41.0-60) L 12/16/17 08:40 MCV 86.6 fl (80-99) 12/16/17 08:40 MCH 28.7 pg (26.0-30.0) 12/16/17 08:40 MCHC Differential 33.2 pg (28.0-36.0) 12/16/17 08:40 RDW 14.9 % (11.5-20.0) 12/16/17 08:40 Plt Count 245 Th/cmm (150-400) 12/16/17 08:40 MPV 7.7 fl 12/16/17 08:40 Neutrophils % 67.0 % (40.0-80.0) 12/16/17 08:40 Lymphocytes % 20.4 % (20.0-50.0) 12/16/17 08:40 Monocytes % 8.3 % (2.0-10.0) 12/16/17 08:40 Eosinophils % 4.1 % (0.0-5.0) 12/16/17 08:40 Basophils % 0.2 % (0.0-2.0) 12/16/17 08:40 Sodium 141 mEq/L (136-145) 12/16/17 08:40 Potassium 4.1 mEq/L (3.5-5.1) 12/16/17 08:40 Chloride 109 mEq/L (98-107) H 12/16/17 08:40 Carbon Dioxide 24.7 mEq/L (21.0-31.0) 12/16/17 08:40 Anion Gap 11.4 (7.0-16.0) 12/16/17 08:40 BUN 18 mg/dL (7-25) 12/16/17 08:40 Creatinine 1.2 mg/dL (0.7-1.3) 12/16/17 08:40 Est GFR ( Amer) > 60.0 ml/min (>90) 12/16/17 08:40 Est GFR (Non-Af Amer) > 60.0 ml/min 12/16/17 08:40 BUN/Creatinine Ratio 15.0 12/16/17 08:40 Glucose 122 mg/dL (70-105) H 12/16/17 08:40 Calcium 9.8 mg/dL (8.6-10.3) 12/16/17 08:40 Total Bilirubin 0.4 mg/dL (0.3-1.0) 12/13/17 22:05 AST 15 U/L (13-39) 12/13/17 22:05 ALT 28 U/L (7-52) 12/13/17 22:05 Alkaline Phosphatase 79 U/L (34-104) 12/13/17 22:05 Total Protein 6.9 gm/dL (6.0-8.3) 12/13/17 22:05 Albumin 4.0 gm/dL (4.2-5.5) L 12/13/17 22:05 Globulin 2.9 gm/dL 12/13/17 22:05 Albumin/Globulin Ratio 1.4 (1.0-1.8) 12/13/17 22:05 Urine Source CLEAN C 12/13/17 23:08 Urine Color YELLOW 12/13/17 23:08 Urine Clarity CLEAR (CLEAR) 12/13/17 23:08 Urine pH 6.0 (4.6 - 8.0) 12/13/17 23:08 Ur Specific [place] <= 1.005 (1.005-1.030) 12/13/17 23:08 Urine Protein NEGATIVE mg/dL (NEGATIVE) 12/13/17 23:08 Urine Glucose (UA) NEGATIVE mg/dL (NEGATIVE) 12/13/17 23:08 Urine Ketones NEGATIVE mg/dL (NEGATIVE) 12/13/17 23:08 Urine Blood NEGATIVE (NEGATIVE) 12/13/17 23:08 Urine Nitrate NEGATIVE (NEGATIVE) 12/13/17 23:08 Urine Bilirubin NEGATIVE (NEGATIVE) 12/13/17 23:08 Urine Urobilinogen 0.2 E.U./dL (0.2 - 1.0) 12/13/17 23:08 Ur Leukocyte Esterase TRACE (NEGATIVE) H 12/13/17 23:08 Urine RBC NONE SEEN /hpf (0-5) 12/13/17 23:08 Urine WBC 0-2 /hpf (0-5) 12/13/17 23:08 Ur Epithelial Cells OCCASIONAL /lpf (FEW) 12/13/17 23:08 Urine Bacteria OCCASIONAL /hpf (NONE SEEN) 12/13/17 23:08 [place] 0.79 mmol/L (0.5-1.0) 12/13/17 22:05 - Physical Exam Vitals and I&O: Vital Signs Temp 97.8 F 12/16/17 15:40 Pulse 50 12/16/17 15:40 Resp 18 12/16/17 15:40 BP 124/71 12/16/17 15:40 Pulse Ox 99 12/16/17 15:40 Intake & Output 12/15/17 12/16/17 12/16/17 18:59 06:59 18:59 Intake Total 2850 1000 50 Balance 2850 1000 50 Weight (lbs) 59.421 kg Intake: Intake, IV Amount 1050 1000 50 Sodium Chloride 0.9% 1, 1000 1000 000 ml @ 125 mls/hr IV . Q8H [facility] Rx#:[id number] cefTRIAXone 1 gm In 50 50 Sodium Chloride 0.9% 50 ml @ 100 mls/hr IV Q24HR@ 0900 [facility] Rx#:[id number] Oral 1800 Other: # Voids 3 # Bowel Movements 0 Stool Characteristics Soft Formed Weight Source Bedscale Active Medications: Current Medications Acetaminophen (Tylenol) 650 mg PO Q4HR PRN PRN Reason: Pain or Fever >101 Stop: 02/12/18 09:08 Albuterol Sulfate (Albuterol 2.5mg/3ml Neb Ud) 2.5 mg HHN Q6HR PRN PRN Reason: Shortness of Breath Clotrimazole (Lotrimin 1% Cream) 1 appl TP DAILY [facility] Stop: 12/23/17 08:59 Last Admin: 12/16/17 09:41 Dose: 1 appl Clozapine (Clozaril) 50 mg PO BID [facility] Stop: 02/12/18 16:59 Last Admin: 12/16/17 11:02 Dose: 50 mg Docusate Sodium (Colace) 250 mg PO DAILY [facility] Stop: 02/13/18 08:59 Last Admin: 12/16/17 09:18 Dose: 250 mg Fish Oil ([place] 3) 1,000 mg PO DAILY [facility] Stop: 02/13/18 08:59 Last Admin: 12/16/17 09:18 Dose: 1,000 mg Sodium Chloride (Nacl 0.9%) 1,000 mls @ 125 mls/hr IV .Q8H [facility] Stop: 02/11/18 23:48 Last Admin: 12/15/17 23:52 Dose: 125 mls/hr Lactulose (Cephulac) 30 gm PO BID [facility] Stop: 02/12/18 16:59 Last Admin: 12/16/17 09:19 Dose: 30 gm [place] Carbonate (Eskalith) 600 mg PO HS [facility]; Protocol Stop: 02/12/18 20:59 Last Admin: 12/15/17 20:48 Dose: 600 mg Lorazepam (Ativan) 0.5 mg PO HS [facility]; Protocol Stop: 02/12/18 20:59 Methimazole (Tapazole) 20 mg PO DAILY [facility] Stop: 02/13/18 08:59 Last Admin: 12/16/17 09:19 Dose: 20 mg Pantoprazole Sodium (Protonix) 40 mg PO DAILY [facility] Stop: 02/13/18 08:59 Last Admin: 12/16/17 09:18 Dose: 40 mg Zolpidem Tartrate (Ambien) 5 mg PO HS [facility] Stop: 02/12/18 20:59 Last Admin: 12/15/17 20:47 Dose: 5 mg General: weak HEENT: NC/AT Neck: Supple Lungs: congested Cardiovascular: Normal S1, Normal S2 Abdomen: non-tender Extremities: clear Internal Medicine Assmt/Plan - Assessment Assessment: bronchitis. Leukocytosis h/o Schizophrenia. h/o Hypertension. Mood disorder. h/o Osteoarthritis. - Plan Plan: continue antibiotics monitor vitals/dier labs dr bethany houser f/up Nutritional Asmnt/Malnutr-PDOC - Dietary Evaluation Malnutrition Findings (Please click <Entered> for more info): Nutritional Asmnt/Malnutrition Start: 12/14/17 14: 35 Text: Status: Complete Freq: Protocol: Document 12/14/17 14:35 NADIA (Rec: 12/14/17 14:56 [email or web address]) Nutritional Asmnt/Malnutrition Patient General Information Nutritional Screening High Risk Diagnosis dehydration Pertinent Medical Hx/Surgical Hx Per ED report: HTN, arthritis, anxiety paranoid schizophrenia No H&P available yet Subjective Information Pt resting in bed at time of visit, alert and oriented. Pt states his appetite is good and states he ate well at breakfast. Pt states he has no food preferences. Current Diet Order/ Nutrition Support Low sodium (2 gm) Pertinent Medications colace, omega 3, protonix, tapazole, Nacl 0.9% Pertinent Labs 12/14: Cl 111, glucose 129, Cr 1.3 12/13: Cl 106, glucose 137, Cr 1.4, Alb 4.0 Nutritional Hx/Data Height 1.91 m Height (Calculated Centimeters) 190.5 Current Weight (lbs) 59.421 kg Weight (Calculated Kilograms) 59.4 Weight (Calculated Grams) 32764.6 [place] Body Weight 196 lb Body Mass Index (BMI) 16.3 Weight Status Underweight GI Symptoms GI Symptoms None Last BM none Difficult in: None Food Allergies Yes: almond oil Skin Integrity/Comment: abrasions to both knees, skin irritation to both feet, yojana 17 Estimated Nutritional Goals BEE in Kcals: Using Current wt Calories/Kcals/Kg 27-32 Kcals Calculated 0087-7852 Protein: Using Current wt Protein g/k-1.2 Protein Calculated 60-71 g Fluid: ml 8198-4225 (1 ml/kcal) Nutritional Problem 1. Problem Problem Underweight Etiology possible inadequate energy intake Signs/Symptoms: BMI 16.4 Malnutrition Related to Morbid Obesity Malnutrition related to morbid obesity No Intervention/Recommendation Comments 1. Continue with low sodium 2 gm diet as ordered d/t hx of HTN 2. Monitor PO intake, wt, labs and skin integrity 3. F/U as moderate risk in 3-5 days, 12/17-12/19; PO check 12/16 Expected Outcomes/Goals Expected Outcomes/Goals 1. PO intake to meet at least 75% of nutritional needs 2. Wt gain or stability, skin to remain intact, and nutrition related labs to approach normal limits Reviewed by AMEENA Workman RD
--- NOTE | 2017-12-16 16:24 | Internal Medicine Prog Note ---
Internal Medicine Subjective - Subjective Patient is:: awake Patient Complaints of:: cough, other Per staff patient has:: tolerating meds Internal Medicine Objective - Results Result Diagrams: 12/16/17 08:40 12/16/17 08:40 Recent Labs: Laboratory Last Values WBC 13.1 Th/cmm (4.8-10.8) H 12/16/17 08:40 RBC 4.73 Mil/cmm (4.30-5.70) 12/16/17 08:40 Hgb 13.6 gm/dL (12-16) 12/16/17 08:40 Hct 40.9 % (41.0-60) L 12/16/17 08:40 MCV 86.6 fl (80-99) 12/16/17 08:40 MCH 28.7 pg (26.0-30.0) 12/16/17 08:40 MCHC Differential 33.2 pg (28.0-36.0) 12/16/17 08:40 RDW 14.9 % (11.5-20.0) 12/16/17 08:40 Plt Count 245 Th/cmm (150-400) 12/16/17 08:40 MPV 7.7 fl 12/16/17 08:40 Neutrophils % 67.0 % (40.0-80.0) 12/16/17 08:40 Lymphocytes % 20.4 % (20.0-50.0) 12/16/17 08:40 Monocytes % 8.3 % (2.0-10.0) 12/16/17 08:40 Eosinophils % 4.1 % (0.0-5.0) 12/16/17 08:40 Basophils % 0.2 % (0.0-2.0) 12/16/17 08:40 Sodium 141 mEq/L (136-145) 12/16/17 08:40 Potassium 4.1 mEq/L (3.5-5.1) 12/16/17 08:40 Chloride 109 mEq/L (98-107) H 12/16/17 08:40 Carbon Dioxide 24.7 mEq/L (21.0-31.0) 12/16/17 08:40 Anion Gap 11.4 (7.0-16.0) 12/16/17 08:40 BUN 18 mg/dL (7-25) 12/16/17 08:40 Creatinine 1.2 mg/dL (0.7-1.3) 12/16/17 08:40 Est GFR ( Amer) > 60.0 ml/min (>90) 12/16/17 08:40 Est GFR (Non-Af Amer) > 60.0 ml/min 12/16/17 08:40 BUN/Creatinine Ratio 15.0 12/16/17 08:40 Glucose 122 mg/dL (70-105) H 12/16/17 08:40 Calcium 9.8 mg/dL (8.6-10.3) 12/16/17 08:40 Total Bilirubin 0.4 mg/dL (0.3-1.0) 12/13/17 22:05 AST 15 U/L (13-39) 12/13/17 22:05 ALT 28 U/L (7-52) 12/13/17 22:05 Alkaline Phosphatase 79 U/L (34-104) 12/13/17 22:05 Total Protein 6.9 gm/dL (6.0-8.3) 12/13/17 22:05 Albumin 4.0 gm/dL (4.2-5.5) L 12/13/17 22:05 Globulin 2.9 gm/dL 12/13/17 22:05 Albumin/Globulin Ratio 1.4 (1.0-1.8) 12/13/17 22:05 Urine Source CLEAN C 12/13/17 23:08 Urine Color YELLOW 12/13/17 23:08 Urine Clarity CLEAR (CLEAR) 12/13/17 23:08 Urine pH 6.0 (4.6 - 8.0) 12/13/17 23:08 Ur Specific [place] <= 1.005 (1.005-1.030) 12/13/17 23:08 Urine Protein NEGATIVE mg/dL (NEGATIVE) 12/13/17 23:08 Urine Glucose (UA) NEGATIVE mg/dL (NEGATIVE) 12/13/17 23:08 Urine Ketones NEGATIVE mg/dL (NEGATIVE) 12/13/17 23:08 Urine Blood NEGATIVE (NEGATIVE) 12/13/17 23:08 Urine Nitrate NEGATIVE (NEGATIVE) 12/13/17 23:08 Urine Bilirubin NEGATIVE (NEGATIVE) 12/13/17 23:08 Urine Urobilinogen 0.2 E.U./dL (0.2 - 1.0) 12/13/17 23:08 Ur Leukocyte Esterase TRACE (NEGATIVE) H 12/13/17 23:08 Urine RBC NONE SEEN /hpf (0-5) 12/13/17 23:08 Urine WBC 0-2 /hpf (0-5) 12/13/17 23:08 Ur Epithelial Cells OCCASIONAL /lpf (FEW) 12/13/17 23:08 Urine Bacteria OCCASIONAL /hpf (NONE SEEN) 12/13/17 23:08 [place] 0.79 mmol/L (0.5-1.0) 12/13/17 22:05 - Physical Exam Vitals and I&O: Vital Signs Temp 97.8 F 12/16/17 15:40 Pulse 50 12/16/17 15:40 Resp 18 12/16/17 15:40 BP 124/71 12/16/17 15:40 Pulse Ox 99 12/16/17 15:40 Intake & Output 12/15/17 12/16/17 12/16/17 18:59 06:59 18:59 Intake Total 2850 1000 50 Balance 2850 1000 50 Weight (lbs) 59.421 kg Intake: Intake, IV Amount 1050 1000 50 Sodium Chloride 0.9% 1, 1000 1000 000 ml @ 125 mls/hr IV . Q8H [facility] Rx#:[id number] cefTRIAXone 1 gm In 50 50 Sodium Chloride 0.9% 50 ml @ 100 mls/hr IV Q24HR@ 0900 [facility] Rx#:[id number] Oral 1800 Other: # Voids 3 # Bowel Movements 0 Stool Characteristics Soft Formed Weight Source Bedscale Active Medications: Current Medications Acetaminophen (Tylenol) 650 mg PO Q4HR PRN PRN Reason: Pain or Fever >101 Stop: 02/12/18 09:08 Albuterol Sulfate (Albuterol 2.5mg/3ml Neb Ud) 2.5 mg HHN Q6HR PRN PRN Reason: Shortness of Breath Clotrimazole (Lotrimin 1% Cream) 1 appl TP DAILY [facility] Stop: 12/23/17 08:59 Last Admin: 12/16/17 09:41 Dose: 1 appl Clozapine (Clozaril) 50 mg PO BID [facility] Stop: 02/12/18 16:59 Last Admin: 12/16/17 11:02 Dose: 50 mg Docusate Sodium (Colace) 250 mg PO DAILY [facility] Stop: 02/13/18 08:59 Last Admin: 12/16/17 09:18 Dose: 250 mg Fish Oil ([place] 3) 1,000 mg PO DAILY [facility] Stop: 02/13/18 08:59 Last Admin: 12/16/17 09:18 Dose: 1,000 mg Sodium Chloride (Nacl 0.9%) 1,000 mls @ 125 mls/hr IV .Q8H [facility] Stop: 02/11/18 23:48 Last Admin: 12/15/17 23:52 Dose: 125 mls/hr Lactulose (Cephulac) 30 gm PO BID [facility] Stop: 02/12/18 16:59 Last Admin: 12/16/17 09:19 Dose: 30 gm [place] Carbonate (Eskalith) 600 mg PO HS [facility]; Protocol Stop: 02/12/18 20:59 Last Admin: 12/15/17 20:48 Dose: 600 mg Lorazepam (Ativan) 0.5 mg PO HS [facility]; Protocol Stop: 02/12/18 20:59 Methimazole (Tapazole) 20 mg PO DAILY [facility] Stop: 02/13/18 08:59 Last Admin: 12/16/17 09:19 Dose: 20 mg Pantoprazole Sodium (Protonix) 40 mg PO DAILY [facility] Stop: 02/13/18 08:59 Last Admin: 12/16/17 09:18 Dose: 40 mg Zolpidem Tartrate (Ambien) 5 mg PO HS [facility] Stop: 02/12/18 20:59 Last Admin: 12/15/17 20:47 Dose: 5 mg General: weak HEENT: NC/AT Neck: Supple Lungs: congested Cardiovascular: Normal S1, Normal S2 Abdomen: non-tender Extremities: clear Internal Medicine Assmt/Plan - Assessment Assessment: bronchitis. Leukocytosis h/o Schizophrenia. h/o Hypertension. Mood disorder. h/o Osteoarthritis. - Plan Plan: continue antibiotics monitor vitals/dier labs dr bethany houser f/up Nutritional Asmnt/Malnutr-PDOC - Dietary Evaluation Malnutrition Findings (Please click <Entered> for more info): Nutritional Asmnt/Malnutrition Start: 12/14/17 14: 35 Text: Status: Complete Freq: Protocol: Document 12/14/17 14:35 NADIA (Rec: 12/14/17 14:56 [email or web address] [email or web address]) Nutritional Asmnt/Malnutrition Patient General Information Nutritional Screening High Risk Diagnosis dehydration Pertinent Medical Hx/Surgical Hx Per ED report: HTN, arthritis, anxiety paranoid schizophrenia No H&P available yet Subjective Information Pt resting in bed at time of visit, alert and oriented. Pt states his appetite is good and states he ate well at breakfast. Pt states he has no food preferences. Current Diet Order/ Nutrition Support Low sodium (2 gm) Pertinent Medications colace, omega 3, protonix, tapazole, Nacl 0.9% Pertinent Labs 12/14: Cl 111, glucose 129, Cr 1.3 12/13: Cl 106, glucose 137, Cr 1.4, Alb 4.0 Nutritional Hx/Data Height 1.91 m Height (Calculated Centimeters) 190.5 Current Weight (lbs) 59.421 kg Weight (Calculated Kilograms) 59.4 Weight (Calculated Grams) 97720.6 [place] Body Weight 196 lb Body Mass Index (BMI) 16.3 Weight Status Underweight GI Symptoms GI Symptoms None Last BM none Difficult in: None Food Allergies Yes: almond oil Skin Integrity/Comment: abrasions to both knees, skin irritation to both feet, yojana 17 Estimated Nutritional Goals BEE in Kcals: Using Current wt Calories/Kcals/Kg 27-32 Kcals Calculated 0658-9287 Protein: Using Current wt Protein g/k-1.2 Protein Calculated 60-71 g Fluid: ml 0416-3059 (1 ml/kcal) Nutritional Problem 1. Problem Problem Underweight Etiology possible inadequate energy intake Signs/Symptoms: BMI 16.4 Malnutrition Related to Morbid Obesity Malnutrition related to morbid obesity No Intervention/Recommendation Comments 1. Continue with low sodium 2 gm diet as ordered d/t hx of HTN 2. Monitor PO intake, wt, labs and skin integrity 3. F/U as moderate risk in 3-5 days, 12/17-12/19; PO check 12/16 Expected Outcomes/Goals Expected Outcomes/Goals 1. PO intake to meet at least 75% of nutritional needs 2. Wt gain or stability, skin to remain intact, and nutrition related labs to approach normal limits Reviewed by AMEENA Workman RD
--- NOTE | 2017-12-18 03:22 | Discharge Summary ---
DATE OF DISCHARGE: 12/16/2017 HOSPITAL COURSE: The patient was admitted to [facility] on 12/13 and discharged on 12/16. A 57-year-old male patient, resident of the [place], who was admitted because of increasing weakness. The patient is known to have history of psychosis, found to have acute dehydration, leukocytosis, hypertension, UTI, paranoid schizophrenia. The patient was admitted. ID doctor was consulted, he was given IV antibiotics and the patient improved, but the patient still have psychiatric problem. Psychiatrist recommended Geropsych unit, but the patient's family refused. The patient was taken back to [place] where I will be following the patient. The patient condition at the time of discharge is stable. [facility]# [id number]
== END 2017-12-16 17:10 | disposition left against medical advice (07) | DRG 689 ==
LOC: ER 21:38 → MSI 23:00
PROVIDERS: ADMIT Internal Medicine; ATTEND Internal Medicine
DX: N39.0 Urinary tract infection, site not specified (principal); E41 Nutritional marasmus; F20.0 Paranoid schizophrenia; Z68.1 Body mass index [BMI] 19.9 or less, adult; J40 Bronchitis, not specified as acute or chronic; D72.829 Elevated white blood cell count, unspecified; E86.0 Dehydration; I10 Essential (primary) hypertension; M19.90 Unspecified osteoarthritis, unspecified site; F41.9 Anxiety disorder, unspecified; K21.9 Gastro-esophageal reflux disease without esophagitis; F39 Unspecified mood [affective] disorder; E87.8 Other disorders of electrolyte and fluid balance, not elsewhere classified; Z91.048 Other nonmedicinal substance allergy status
CPT/HCPCS: 36415-UA; 80048-TC; 80053-TC; 80178-TC; 81001-TC; 85025-TC; 93005; J0696; J7030; Z7610